=== PATIENT | female | born 1985 | race Caucasian/White ===

== ENCOUNTER 2018-04-21 22:07 | Inpatient (IN) | payer MEDICAID, SELFPAY ==
[2018-04-21 22:44] VITALS: BMI 43.0
[2018-04-21 23:44] LABS: #Basophils 0.1 thou/uL (0.0-0.2); #Eosinphils 0.1 thou/uL (0.0-0.7); #Lymphocytes 2.2 thou/uL (1.20-3.40); #Monocytes 0.6 thou/uL (0.11-0.59); #Neutrophils 5.2 thou/uL (1.40-6.50); %Basophils 0.7 % (0.0-1.0); %Eosinophils 1.1 % (0.0-10.0); %Lymphocytes 26.8 % (21.0-51.0); %Monocytes 6.9 % (0.0-10.0); %Neutrophils 64.5 % (42.0-75.0); Hemoglobin 9.1 g/dL (12.0-16.0); Mean Corpuscular Hemoglobin 25.8 pg (27.0-31.0); Mean Corpuscular Volume 75.9 fL (78.0-98.0); Mean Platelet Volume 6.5 fL (7.4-10.4); Platelet Count 297 thou/uL (130-400); RBC Distribution Width 13.4 % (11.5-14.5); Red Blood Cell (RBC) Count 3.53 mill/uL (4.20-5.40); White Blood Cell (WBC) Count 8.1 thou/uL (4.8-10.8)
[2018-04-22 00:07] LABS: ALT (SGPT) Less than 7 U/L (8-55); AST (SGOT) 9 U/L (5-34); Albumin 3.2 g/dL (3.5-5.0); Alkaline Phosphatase 112 U/L (40-150); Anion Gap 12 mmol/L (10-20); BUN (Urea Nitrogen) 11 mg/dL (7.0-18.7); Bilirubin, Total 0.2 mg/dL (0.2-1.2); Calc. Creatinine Clearance 209 mL/min (70-130); Calcium 9.1 mg/dL (7.8-10.44); Carbon Dioxide 22 mmol/L (22-29); Chloride 108 mmol/L (98-107); Estimated GFR-MDRD 89; Globulin 3.2 g/dL (2.4-3.5); Glucose 101 mg/dL (70-105); Lipase 17 U/L (8-78); Potassium 3.3 mmol/L (3.5-5.1); Protein, Total 6.4 g/dL (6.0-8.3); Sodium 139 mmol/L (136-145)
[2018-04-22 00:22] LABS: HBSAB Concentration 0.65 mIU/mL; Hep B Surf AB Non-Reactive (NonReactive)
[2018-04-22 00:23] LABS: Syphilis Antibody Nonreactive (Nonreactive); Syphilis Antibody Index 0.03 S/CO (<1.00 Non-Reactive)
[2018-04-22 00:33] LABS: Amphetamine Not Detected (NotDetected); Barbiturates Screen Not Detected (NotDetected); Benzodiazepine Screen Not Detected (NotDetected); Cocaine Metabolite Screen Not Detected (NotDetected); Medtox Control Line Valid? VALID (VALID); Medtox Reader # READER 4; Methadone Not Detected (NotDetected); Methamphetamine Not Detected (NotDetected); Opiate Screen Not Detected (NotDetected); Oxycodone Screen Not Detected (NotDetected); Phencyclidine (PCP) Not Detected (NotDetected); THC/Cannabinoid Screen Not Detected (NotDetected); Tricyclic Screen Not Detected (NotDetected)
[2018-04-22 04:38] LABS: Bilirubin Negative (Negative); Blood, Urine Negative (Negative); Clarity TURBID (Clear); Glucose, Urine (Dipstick) Negative (Negative); Leukocyte Negative (Negative); Nitrite Positive (Negative); Protein, Urine (Dipstick) Trace mg/dL (Neg-Trace); Specific Gravity, Urine 1.028 (1.002-1.036)
[2018-04-22 04:39] LABS: Bacteria/HPF 4+ HPF (None Seen); Pathc Cast-AUWi Flag 1.16 (0-2.49); Squamous Epithelial 0-3 HPF (0-3)
[2018-04-22 05:02] LABS: Crystals/HPF 3+ AMORPH URATES HPF (Negative); Hyaline Casts/LPF NONE SEEN LPF (0-3 Hyaline); RBC/HPF 0-3 HPF (0-3)
--- NOTE | 2018-04-22 05:56 | PRG ---
DATE OF SERVICE: 04/22/2018 No care. CHIEF COMPLAINT: Upper abdominal pain. HISTORY OF PRESENT ILLNESS: The patient is a 33-year-old female with an intrauterine at 32 weeks by stated due date of 06/16/2018 from a stated ultrasound early in her at [facility]. The patient denies any care up to this point. She reports that she is p resenting today because she is having upper abdominal pain under her breasts and down her right back between her shoulder blades and her hip. She denies heartburn, uterine contractions, vaginal bleedin g, leakage of fluid, fever, fall, headache, chest pain, shortness of breath. She has had some nausea , denies any vomiting, denies diarrhea, constipation. She denies any new skin rashes, hip problems, knee problems or muscle weakness. She does have a history of 2 prior C-sections. She reports that s he is now insured and is looking for an OB provider. PAST MEDICAL HISTORY: Negative. PAST SURGICAL HISTORY: Prior x2. SOCIAL HISTORY: Denies drug, alcohol or tobacco use. ALLERGIES: No known drug allergies. MEDICATIONS: None. OB LABS: Unavailable. REVIEW OF SYSTEMS: Per HPI. PHYSICAL EXAMINATION: VITAL SIGNS: Blood pressure 128/57, heart rate 93, respiratory rate 18, temperature 98.4. GENERAL: She appears to be in no acute distress. She is alert and oriented, cooperative and pleasan t to interact with. HEENT: Head is normocephalic, atraumatic. LUNGS: Clear to auscultation bilaterally. HEART: Regular rate and rhythm. ABDOMEN: She does have tenderness to palpation in the intercostal muscles both anteriorly and real estate director iorly along the lower aspect of her rib cage reproducing the chief complaint. Abdomen is soft and gr avid. EXTREMITIES: Nontender, nonedematous. GENITOURINARY: Has been deferred at this time. heart tracing performed for abdominal pain in . Baseline is noted to be in the 140s w ith moderate long-term variability, positive accelerations, no decelerations. Tocometer shows no con tractions. LABORATORY STUDIES: Baseline labs have been ordered. The patient is noted to have blood type of O n egative with a negative antibody screen. She has a hemoglobin of 9.1, hematocrit 26.7, platelets of 297,000. Sodium was 39, potassium 3.3, chloride 108, creatinine 0.74, glucose 101, AST is 9, ALT is less than 7. Alkaline phosphatase is 112, amylase is 52, lipase is 17. Urine drug screen is negativ e. RPR screen is nonreactive. Hepatitis B surface antigen is nonreactive. UA is still pending. A bedside ultrasound for anatomy and gestational age is pending; however, the tech reports the fetus is about 33 weeks' gestation consistent with her stated 32-week gestational age. ASSESSMENT AND PLAN: The patient is a 33-year-old female with a history of 2 prior C-sections presenting with abdominal pain that is consistent with musculoskeletal pains. She has no lab work co ncerning for any significant abnormalities. Fetus is preliminarily reported appropriate size for age . She will be given RhoGAM prior to discharge as it is unclear at what point she will establish pren atal care. The patient has been given precautions and reassurance. She has been counseled to take 2 Tylenol 3 times a day as needed for pain and to follow up with an OB provider as soon as possible.
--- NOTE | 2018-04-22 09:31 | ULT ---
PRELIMINARY REPORT/[facility]/EMERGENTY AFTER-HOURS PROCEDURE US After First Trimester, Transabdominal CLINICAL HISTORY: 33 years old, female; Pain; ; Gestational age or lmp: 33w3d; ; Prior surgery; Surgery date: 6 + months; Surgery type: C-sec TECHNIQUE: Real-time transabdominal obstetrical ultrasound of the maternal pelvis and a second or third trimeste r with image documentation. COMPARISON: No relevant prior studies available. FINDINGS: There is a single, live intrauterine gestation. Presentation: Breech heart rate: 131 BPM. 4 chamber heart: Identified Placenta: Anterior Grade: 2 Previa: No Amniotic fluid volume: Normal (SHERRON 13.5 cm. anatomy: Stomach: Normal Kidneys: Normal Bladder: Normal Spine: Normal Extremities: Normal Ventricles: Normal Cerebellum: Normal Biometry: Composite sonographic age: 33 weeks 3 days. Estimated date of confinement: 06.07.2018. Estimated weight: 2174 g +/- 322 g Impression: Single, live intrauterine gestation without visible complication. Adequate size relative to LMP. Thank you for allowing us to participate in the care of your patient. Dictated and Authenticated by: Kyree Lauren MD 04/22/2018 1:49 AM Central Time ([place] & [place]) FINAL REPORT OBSTETRICAL ULTRASOUND: DATE: 04/22/18. COMPARISON: None. HISTORY: A 33-year-old female with abdominal pain. FINDINGS: I agree with the preliminary [facility] report dictated by Dr. Lauren. Single intrauterine gestation present demonstrating a breech presentation. The placenta is located a nteriorly, with no evidence for previa or abruption. heart rate is 131 b.p.m. Limited assessment of the anatomy appears grossly unremarkable, including the nose and li ps, stomach, kidneys, urinary bladder, umbilical cord, and umbilical cord insertion. Four-chamber he art view and limited assessment of the spine and intracranial contents appears unremarkable. E stimated cervical length is 3.5 cm. Amniotic fluid index is 13.5 cm. Biometry: BPD 8.2 cm, 33 weeks 1 day HC 30.9 cm, 34 weeks 3 days AC 29.8 cm, 33 weeks 5 days FL 6.2 cm, 32 weeks 2 days Average age based on ultrasound 3 weeks 3 days with estimated date of delivery on 06/07/18. Estimated weight 2174 gm +/- 322 grams. IMPRESSION: Unremarkable obstetrical ultrasound demonstrating a single live intrauterine gestation. POS: LUPE
== END 2018-04-22 02:10 | disposition home or self-care (01) | DRG 776 ==
LOC: L&D/OP 22:07 → L&D 23:00
PROVIDERS: ADMIT Obstetrics & Gynecology; ATTEND Obstetrics & Gynecology
DX: O92.29 Other disorders of breast associated with pregnancy and the puerperium (principal); O26.893 Other specified pregnancy related conditions, third trimester; R10.9 Unspecified abdominal pain; M54.9 Dorsalgia, unspecified; Z3A.32 32 weeks gestation of pregnancy
CPT/HCPCS: 36415; 59025; 76805; 80053; 80306; 81001; 82150; 83690; 85025; 85027; 86706; 86762; 86780; 86850; 86900; 86901; 90384; 96372; 99283

== ENCOUNTER 2019-02-02 16:52 | Emergency (ER) | payer MEDICAID ==
[2019-02-02] MEDS ORDERED: diphenhydrAMINE 50 MG/ML VIAL ONE (17:17)
[2019-02-02] MEDS ORDERED: Ketorolac Tromethamine 30 MG/ML VIAL ONE (17:18)
[2019-02-02] MEDS ORDERED: Prochlorperazine 10 MG/2 ML VIAL ONE (17:18)
[2019-02-02] MEDS ORDERED: methylPREDNISolone Sod Succ/PF 125 MG/2 ML VIAL ONE (19:19)
[2019-02-02] MEDS ORDERED: Acetaminophen 500 MG TAB ONE (19:19)
[2019-02-02] MEDS ORDERED: Magnesium Sulfate 2 GM/NS 0.9% 50 ML BAG ONE (19:19)
== END 2019-02-02 20:24 | disposition home or self-care (01) ==
LOC: SCSER 16:52
DX: G43.909 Migraine, unspecified, not intractable, without status migrainosus (principal)
CPT/HCPCS: 96365; 96367; 96375; J0780; J1200; J1885; J2930; J3475

== ENCOUNTER 2019-10-22 14:33 | Outpatient (CLI) | payer OTHER ==
--- NOTE | 2019-10-22 14:57 | CT ---
CT HEAD WITHOUT CONTRAST: INDICATIONS: Posttraumatic headache. FINDINGS: There is no evidence of ventriculomegaly, mass effect, midline shift or acute intracranial hemorrhage . The calvarium is intact. IMPRESSION: No acute intracranial hemorrhage or mass effect. POS: C
== END 2019-10-22 14:34 | disposition home or self-care (01) ==
LOC: BICCT 14:33
PROVIDERS: ATTEND Family Medicine
DX: S39.012A Strain of muscle, fascia and tendon of lower back, initial encounter (principal); G44.319 Acute post-traumatic headache, not intractable; S80.02XA Contusion of left knee, initial encounter
CPT/HCPCS: 70450